=== PATIENT | female | born 1990 | race Asian ===

== ENCOUNTER 2018-04-08 21:04 | Emergency (ER) | payer SELFPAY ==
[2018-04-08] MEDS ORDERED: IBUPROFEN 600 MG TAB PO ONE (21:16)
--- NOTE | 2018-04-08 21:50 | EDPHY ---
H & P Stated Complaint: fever ear pain Time Seen by Provider: 04/08/18 21:50 HPI/ROS: HPI CHIEF COMPLAINT: Fever x3 days, left ear pain, cough HISTORY OF PRESENT ILLNESS: 27-year-old female, otherwise healthy with no significant medical history presents emergency room with ear pain x3 days and a fever. Patient reports she has had a fever to 103 at home. She complains of severe left ear pain. Also endorses a mild sore throat also endorses a nonproductive cough. She additionally reports to me she has a focal left-sided headache as well. No neck pain. Denies meningeal signs denies neck stiffness, denies vomiting or diarrhea. Main complaint left ear pain, fever, cough. Past Medical History: No medical history Past Surgical History: No surgical history Social History: Denies daily use of drugs alcohol tobacco. Family History: Noncontributory ROS REVIEW OF SYSTEMS: A comprehensive 10 point review of systems is otherwise negative aside from elements mentioned in the history of present illness. Exam Constitutional appears nontoxic, no acute distress, triage nursing summary reviewed, vital signs reviewed, awake/alert. Vital signs noted at triage to be slightly tachycardic and febrile. Eyes normal conjunctivae and sclera, EOMI, PERRLA. HENT posterior pharynx mild erythematous, no exudate, no significant swelling, left TM is erythematous with bulging, right TM clear, left TM is consistent with acute otitis media normal inspection, atraumatic, moist mucus membranes, no epistaxis, neck supple/ no meningismus, no raccoon eyes. Respiratory clear to auscultation bilaterally, normal breath sounds, no respiratory distress, no wheezing. Cardiovascular rate normal, regular rhythm, no murmur, no edema, distal pulses normal. Gastrointestinal soft, non-tender, no rebound, no guarding, normal bowel sounds, no distension, no pulsatile mass. Genitourinary no CVA tenderness. Musculoskeletal no midline vertebral tenderness, full range of motion, no calf swelling, no tenderness of extremities, no meningismus, good pulses, neurovascularly intact. Skin pink, warm, & dry, no rash, skin atraumatic. Neurologic awake, alert and oriented x 3, AAOx3, moves all 4 extremities equally, motor intact, sensory intact, CN II-XII intact, normal cerebellar, normal vision, normal speech. Psychiatric normal mood/affect. Heme/Lymph/Immune no lymphadenopathy. Differential Diagnosis: Includes but is not limited to in a particular order acute febrile illness, otitis media, dehydration, viral pneumonia, bacterial pneumonia, viral pharyngitis, strep pharyngitis Medical Decision Making: Plan for this patient should be given Tylenol 1 g for fever control in emergency room, 1 L normal saline IV fluid bolus, basic blood work, started on amoxicillin for acute otitis media of the left ear, urinalysis re-evaluate. Re-evaluation: 2301: Clinically on exam patient is doing well after IV fluid and Tylenol. Resting comfortably. She has an otitis media on the left ear. Will treat with amoxicillin for this. Additionally her urinalysis shows leukocyte esterase and 1+ bacteria. Urine culture be sent however she denies any urinary symptoms. Will continue amoxicillin. Treat for otitis media. Follow up urine culture. Additionally recommend the patient stay well-hydrated drink lots of fluids, alternate Tylenol Motrin for fever and pain control. Return emergency room if there is worsening symptoms includes high fever, vomiting, not feeling well. She understands. Clinically she appears well nontoxic I do not feel she has meningitis she has no stiff neck. Most likely source of fever is viral syndrome in the setting of otitis media. Source: Patient - Personal History LMP (Females 10-55): 22-28 Days Ago Current Tetanus/Diphtheria Vaccine: Yes Current Tetanus Diphtheria and Acellular Pertussis (TDAP): Yes - Medical/Surgical History Hx Asthma: No Hx Chronic Respiratory Disease: No Hx Diabetes: No Hx Cardiac Disease: No Hx Renal Disease: No Hx Cirrhosis: No Hx Alcoholism: No Hx HIV/AIDS: No Hx Splenectomy or Spleen Trauma: No - Social History Smoking Status: Never smoked Constitutional: Initial Vital Signs Temperature (C) 39.3 C H 04/08/18 21:12 Heart Rate 110 H 04/08/18 21:12 Respiratory Rate 20 04/08/18 21:12 Blood Pressure 111/78 04/08/18 21:12 O2 Sat (%) 93 04/08/18 21:12 O2 Delivery Mode Room Air Allergies/Adverse Reactions: No Known Allergies Allergy (Verified 07/07/13 16:21) Home Medications: Medication Instructions Recorded No Medications [NO HOME 1 ea MISC 06/12/11 MEDICATIONS] Amoxicillin Trihydrate 500 mg PO TID 7 Days cap 04/08/18 [Amoxicillin] Medical Decision Making - Data Points Laboratory Results: Laboratory Results 04/08/18 22:05 04/08/18 22:05 04/08/18 04/08/18 04/08/18 Unknown 22:45 22:05 WBC RBC Hgb Hct MCV MCH MCHC RDW Plt Count MPV Neut % (Auto) Lymph % (Auto) [place] % (Auto) Eos % (Auto) Baso % (Auto) Nucleat RBC Rel Count Absolute Neuts (auto) Absolute Lymphs (auto) Absolute Monos (auto) Absolute Eos (auto) Absolute Basos (auto) Absolute Nucleated RBC Immature Gran % Immature Gran # Sodium Potassium Chloride Carbon Dioxide Anion Gap BUN Creatinine Estimated GFR Glucose Calcium Urine Color PALE YELLOW Urine Appearance CLEAR Urine pH 7.0 (5.0-7.5) Ur Specific [place] 1.004 (1.002-1.030) Urine Protein NEGATIVE (NEGATIVE) Urine Ketones NEGATIVE (NEGATIVE) Urine Blood NEGATIVE (NEGATIVE) Urine Nitrate NEGATIVE (NEGATIVE) Urine Bilirubin NEGATIVE (NEGATIVE) Urine Urobilinogen NEGATIVE EU EU (0.2-1.0) Ur Leukocyte Esterase 1+ H (NEGATIVE) Urine RBC 1-3 /hpf /hpf (0-3) Urine WBC 1-3 /hpf /hpf (0-3) Ur Epithelial Cells TRACE /lpf /lpf (NONE-1+) Urine Bacteria TRACE /hpf H /hpf (NONE SEEN) Urine Glucose NEGATIVE (NEGATIVE) Group A Strep Screen NEGATIVE (NEGATIVE) Group A Strep DNA Pending 04/08/18 04/08/18 22:05 22:05 WBC 8.22 10^3/uL 10^3/uL (3.80-9.50) RBC 4.67 10^6/uL 10^6/uL (4.18-5.33) Hgb 14.1 g/dL g/dL (12.6-16.3) Hct 41.7 % % (38.0-47.0) MCV 89.3 fL fL (81.5-99.8) MCH 30.2 pg pg (27.9-34.1) MCHC 33.8 g/dL g/dL (32.4-36.7) RDW 12.7 % % (11.5-15.2) Plt Count 250 10^3/uL 10^3/uL (150-400) MPV 8.9 fL fL (8.7-11.7) Neut % (Auto) 75.0 % H % (39.3-74.2) Lymph % (Auto) 14.2 % L % (15.0-45.0) [place] % (Auto) 7.5 % % (4.5-13.0) Eos % (Auto) 2.8 % % (0.6-7.6) Baso % (Auto) 0.1 % L % (0.3-1.7) Nucleat RBC Rel Count 0.0 % % (0.0-0.2) Absolute Neuts (auto) 6.16 10^3/uL 10^3/uL (1.70-6.50) Absolute Lymphs (auto) 1.17 10^3/uL 10^3/uL (1.00-3.00) Absolute Monos (auto) 0.62 10^3/uL 10^3/uL (0.30-0.80) Absolute Eos (auto) 0.23 10^3/uL 10^3/uL (0.03-0.40) Absolute Basos (auto) 0.01 10^3/uL L 10^3/uL (0.02-0.10) Absolute Nucleated RBC 0.00 10^3/uL 10^3/uL (0-0.01) Immature Gran % 0.4 % % (0.0-1.1) Immature Gran # 0.03 10^3/uL 10^3/uL (0.00-0.10) Sodium 136 mEq/L mEq/L (135-145) Potassium 4.3 mEq/L mEq/L (3.3-5.0) Chloride 107 mEq/L mEq/L (97-110) Carbon Dioxide 19 mEq/l L mEq/l (22-31) Anion Gap 10 mEq/L mEq/L (8-16) BUN 7 mg/dL mg/dL (7-23) Creatinine 0.6 mg/dL mg/dL (0.6-1.0) Estimated GFR > 60 Glucose 111 mg/dL H mg/dL (70-100) Calcium 8.9 mg/dL mg/dL (8.5-10.4) Urine Color Urine Appearance Urine pH Ur Specific [place] Urine Protein Urine Ketones Urine Blood Urine Nitrate Urine Bilirubin Urine Urobilinogen Ur Leukocyte Esterase Urine RBC Urine WBC Ur Epithelial Cells Urine Bacteria Urine Glucose Group A Strep Screen Group A Strep DNA Medications Given: Discontinued Medications Acetaminophen (Tylenol) 1,000 mg PO EDNOW ONE Stop: 04/08/18 21:55 Last Admin: 04/08/18 22:12 Dose: 1,000 mg Amoxicillin (Amoxicillin) 500 mg PO EDNOW ONE PRN Reason: Protocol Stop: 04/08/18 21:59 Last Admin: 04/08/18 22:11 Dose: 500 mg Sodium Chloride (Ns) 1,000 mls @ 0 mls/hr IV EDNOW ONE; Wide Open PRN Reason: Protocol Stop: 04/08/18 21:54 Last Admin: 04/08/18 22:06 Dose: 1,000 mls Ibuprofen (Motrin) 600 mg PO EDNOW ONE Stop: 04/08/18 21:17 Last Admin: 04/08/18 21:36 Dose: 600 mg Departure - Departure Disposition: Home, Routine, Self-Care Clinical Impression: Fever Qualifiers: Fever type: due to other condition Qualified Code(s): R50.81 - Fever presenting with conditions classified elsewhere Otitis media Qualifiers: Otitis media type: suppurative Chronicity: acute Laterality: left Recurrence: not specified as recurrent Spontaneous tympanic membrane rupture: without spontaneous rupture Qualified Code(s): H66.002 - Acute suppurative otitis media without spontaneous rupture of ear drum, left ear Condition: Good Instructions: Fever in Adults (ED), Ear Infection (ED) Additional Instructions: 1. Please drink lots of fluids stay well-hydrated. 2. Please alternate Tylenol and Motrin every 4-6 hours for fever pain control. 3. Antibiotic as prescribed 4. Return emergency room if her doing worse this includes high fever, vomiting or not feeling well. Referrals: NONE *PRIMARY CARE P,. [Primary Care Provider] - As per Instructions [facility],. [Clinic] - As per Instructions Prescriptions: Amoxicillin Trihydrate [Amoxicillin] 500 mg PO TID 7 Days cap
[2018-04-08] MEDS ORDERED: NS 1,000 ML IV ONE (21:53)
[2018-04-08] MEDS ORDERED: ACETAMINOPHEN 500 MG TAB PO ONE (21:54)
[2018-04-08 22:19] LABS: PLATELET COUNT 250 10^3/uL (150-400)
[2018-04-08 22:45] VITALS: BP 131/79
== END 2018-04-08 23:10 | disposition home or self-care (01) ==
DX: H66.002 Acute suppurative otitis media without spontaneous rupture of ear drum, left ear (principal); R50.81 Fever presenting with conditions classified elsewhere; E86.9 Volume depletion, unspecified